=== PATIENT | female | born 1945 | race Caucasian/White ===

== ENCOUNTER 2025-04-06 20:37 | Observation (INO) | payer MEDICARE, BC ==
[~2025-04-06] VITALS: Ht 152.4 cm; Wt 87.4 kg
[2025-04-06] MEDS: ASPIRIN 81 MG ENTERIC TABLET PO SCH (21:00)
[2025-04-06] MEDS: ATORVASTATIN 20 MG TAB PO SCH (21:00)
[2025-04-07 02:14] VITALS: BP 148/82; TEMP 97.3; O2SAT 97
[2025-04-07] MEDS: UNRESOLVED CLARIFICATION ENTRY XX STA (03:41)
[2025-04-07] MEDS ORDERED: ACET-683 PO (04:14)
[2025-04-07] MEDS ORDERED: ATOR40TA75 PO (04:14)
[2025-04-07] MEDS ORDERED: ASPI81TA26 PO (04:14)
[2025-04-07] MEDS ORDERED: VITA100093 PO (04:14)
[2025-04-07] MEDS ORDERED: D3 H10003 PO (04:14)
[2025-04-07 04:22] LABS: BASO # 0.1 10^3/uL (0.0-0.2); BASO % 0.8 % (0.0-1.0); EOS # 0.2 10^3/uL (0.0-0.5); EOS % 2.0 % (0.0-3.0); LYMPH # 1.6 10^3/uL (1.5-5.0); LYMPH % 17.0 % (24.0-44.0); MONO # 0.7 10^3/uL (0.0-0.8); MONO % 7.2 % (2.0-8.0); NEUTROPHILS # 6.7 10^3/uL (1.5-8.5); NEUTROPHILS % 72.8 % (36.0-66.0); PLATELET COUNT, AUTOMATED 224 10^3/uL (150-450)
[2025-04-07] MEDS ORDERED: XALA0.007 OU (04:24)
[2025-04-07] MEDS ORDERED: IRON65TA2 PO (04:24)
[2025-04-07] MEDS ORDERED: FURO20TA2 PO (04:24)
[2025-04-07] MEDS ORDERED: POTA-150 PO (04:24)
[2025-04-07] MEDS ORDERED: DOCU100C16 PO (04:24)
[2025-04-07] MEDS ORDERED: VIT1TABL25 PO (04:24)
[2025-04-07] MEDS ORDERED: METO1TAB87 PO (04:24)
[2025-04-07] MEDS ORDERED: TUMS500C PO (04:26)
[2025-04-07] MEDS ORDERED: RAMI5CAP60 PO (04:26)
[2025-04-07] MEDS ORDERED: HOME MED LIST COMPLETE! XX SCH (04:30)
[2025-04-07 04:51] LABS: CK-MB VALUE MASS 1.0 NG/ML (<3.6); ESTIMATED AVERAGE GLUCOSE 117.0 MG/DL (60-110)
[2025-04-07 04:53] LABS: ALT/SGPT 10.0 U/L (7.0-40); AST/SGOT 16.0 U/L (<34); CALCIUM LEVEL 8.8 MG/DL (8.3-10.6); CARBON DIOXIDE LEVEL 25.0 MMOL/L (20-31); CHLORIDE LEVEL 108.0 MMOL/L (98-107); CHOLESTEROL LEVEL 121.0 MG/DL (<200); CHOLESTEROL RISK RATIO 3.62 (<5); CREATININE FOR GFR 0.78 MG/DL (0.55-1.30); GLOMERULAR FILTRATION RATE 76.7 (>32); LDL CHOLESTEROL 62.8 MG/DL (<100); NON-HDL-C 87.6 MG/DL; POTASSIUM SERUM 4.1 MMOL/L (3.5-5.1); SODIUM LEVEL 143.0 MMOL/L (136-145); TRIGLYCERIDES LEVEL 124.0 MG/DL (<150)
[2025-04-07 04:54] LABS: CPK CREATINE PHOSPHOKINASE 53.0 U/L (34-145); MB/CK RELATIVE INDEX 1.88 (< OR =4)
[2025-04-07 08:00] VITALS: BP_SYST 138; BP_SYST 148; BP_DIAS 72; BP_DIAS 82; TEMP 97.3; TEMP 98; O2SAT 97
[2025-04-07] MEDS: HEPARIN SOD 5000 UNITS/ML 1 ML VIAL/SYRINGE SQ SCH (08:26)
[2025-04-07] MEDS: PANTOPRAZOLE 40MG VIAL IV SCH (08:26)
[2025-04-07] MEDS: METOPROLOL TART 25 MG TABLET PO SCH (08:30)
[2025-04-07 08:54] LABS: MAGNESIUM LEVEL 2.1 MG/DL (1.8-2.4); PHOSPHORUS LEVEL 3.6 MG/DL (2.4-5.1)
[2025-04-07 12:03] VITALS: BP 135/73; TEMP 98.4; O2SAT 96
[2025-04-07 16:10] VITALS: BP_SYST 153; BP_SYST 163; BP_DIAS 71; TEMP 98.8; O2SAT 96
[2025-04-07 20:02] VITALS: BP 130/62; TEMP 98.2; O2SAT 95
[2025-04-07] MEDS: ATORVASTATIN 20 MG TAB PO SCH (20:18)
[2025-04-07] MEDS: APIXABAN 5 MG TAB PO SCH (20:38)
[2025-04-08] VITALS (7 sets, daily range): BP systolic 126–151; BP diastolic 58–82; TEMP 97.6–98.3; O2SAT 93–97
[2025-04-08 08:08] LABS: PLATELET COUNT, AUTOMATED 239 10^3/uL (150-450)
[2025-04-08 08:30] LABS: CALCIUM LEVEL 9.0 MG/DL (8.3-10.6); CARBON DIOXIDE LEVEL 24.0 MMOL/L (20-31); CHLORIDE LEVEL 110.0 MMOL/L (98-107); CREATININE FOR GFR 0.83 MG/DL (0.55-1.30); GLOMERULAR FILTRATION RATE 71.2 (>32); POTASSIUM SERUM 4.0 MMOL/L (3.5-5.1); SODIUM LEVEL 144.0 MMOL/L (136-145)
[2025-04-08] MEDS: FERROUS SULFATE 325 MG TAB PO SCH (08:56)
[2025-04-08] MEDS ORDERED: ELIQ5TAB PO (13:00)
[2025-04-08] MEDS ORDERED: MECL-136 PO (13:05)
[2025-04-08] MEDS ORDERED: ELIQ2.5T PO (17:39)
[2025-04-14] MEDS ORDERED: APIXABAN 5 MG TAB PO SCH (21:00)
[2025-05-09] MEDS ORDERED: APIXABAN 5 MG TAB PO SCH (21:00)
== END 2025-04-08 14:59 | disposition home health service (06) ==
LOC: INTOOBSV 04-07 02:11 → M MSPAV 04-07 02:11
PROVIDERS: ADMIT Student in an Organized Health Care Education/Training Program; ATTEND Student in an Organized Health Care Education/Training Program
DX: R47.81 Slurred speech (principal); R53.1 Weakness; R42 Dizziness and giddiness; R26.81 Unsteadiness on feet; Z86.73 Personal history of transient ischemic attack (TIA), and cerebral infarction without residual deficits; I25.10 Atherosclerotic heart disease of native coronary artery without angina pectoris; Z95.1 Presence of aortocoronary bypass graft; I44.0 Atrioventricular block, first degree; I48.91 Unspecified atrial fibrillation; D50.9 Iron deficiency anemia, unspecified; I10 Essential (primary) hypertension; Z85.3 Personal history of malignant neoplasm of breast; Z82.49 Family history of ischemic heart disease and other diseases of the circulatory system; Z79.899 Other long term (current) drug therapy
CPT/HCPCS: 36415; 70551; 80048; 80061; 80076; 82550; 82553; 83036; 83735; 84100; 84484; 85025; 85027; 86850; 86900; 86901; 87486; 87581; 87633; 87798; 93005; 93306; 93880; 96372; 96374; 96376; 97116; 97161; 97530; G0378; J2470